=== PATIENT | female | born 1935 | race Asian ===

== ENCOUNTER 2022-12-12 11:17 | Emergency (ER) | payer MEDICARE, OTHER ==
[~2022-12-12] VITALS: Ht 152.4 cm; Wt 68.9 kg
[2022-12-12 11:20] VITALS: BP 159/93; PULSE 72; RESP 16; TEMP 98.1; O2SAT 98
[2022-12-12 11:53] LABS: BASOPHILS % (AUTO) 0.4 % (0.0-2.0); EOSINOPHILS # (AUTO) 0.3 K/uL (0-0.4); EOSINOPHILS % (AUTO) 3.7 % (0.0-4.0); HEMATOCRIT 36.5 % (36-48); HEMOGLOBIN 12.4 g/dL (12.0-16.0); LYMPHOCYTES % (AUTO) 28.7 % (20.5-51.1); MEAN CORPUSCULAR HEMOGLOBIN 29 pg (27-31); MEAN CORPUSCULAR HGB CONC 34 g/dL (33-37); MEAN CORPUSCULAR VOLUME 85.5 fL (80-94); MONOCYTES # (AUTO) 0.5 K/uL (0.8-1.0); MONOCYTES % (AUTO) 7.1 % (1.7-9.3); NEUTROPHILS # (AUTO) 4.3 K/uL (1.8-7.7); NEUTROPHILS % (AUTO) 60.1 % (42.2-75.2); PLATELET COUNT (AUTO) 270 K/uL (140-450); RED BLOOD CELL COUNT(AUTO) 4.27 MIL/uL (4.20-5.40); RED CELL DISTRIBUTION WIDTH 13.6 % (11.6-13.7); WHITE BLOOD COUNT (AUTO) 7.1 K/uL (4.8-10.8)
[2022-12-12 12:09] LABS: ALBUMIN 3.7 g/dL (3.4-5.0); ANION GAP 12.2 (8-16); ASPARTATE AMINOTRANSFERASE 20 U/L (15-37); CARBON DIOXIDE 28.2 mmol/L (21-32); CHLORIDE 95 mmol/L (98-107); CREATININE 0.9 mg/dL (0.6-1.3); GLUCOSE 204 mg/dL (74-106); LIPASE 192 U/L (73-393); POTASSIUM 4.4 mmol/L (3.5-5.1); SODIUM SERUM 131 mmol/L (136-145); TOTAL BILIRUBIN 0.7 mg/dL (0.0-1.0); UREA NITROGEN, BLOOD 17 mg/dL (7-18)
[2022-12-12 12:13] VITALS: O2SAT 100
--- NOTE | 2022-12-12 12:19 | NUR ---
87 Y/O F PATIENT PRESENTS TO ED WITH ABD PAIN AND BI LATERAL KNEE PAIN . PT STATES THAT SHE HAS HX OF HTN, OSTEOPOROSIS, SPONDYLOSIS. PT STATES SHES BEEN VOMITING SINCE LAST NIGHT. PT DENIES DIARREHA SKIN IS PINK/WARM/DRY; AAOX4 WITH EVEN AND STEADY GAIT; LUNGS CLEAR BL; HR EVEN AND REGULAR; PT DENIES ANY FEVER, SOB, OR COUGH AT THIS TIME; PATIENT STATES PAIN OF 5/10 AT THIS TIME; VSS; PATIENT POSITIONED FOR COMFORT; HOB ELEVATED; BEDRAILS UP X2; CALL LIGHT WITH IN REACH,BED DOWN. ER MADE AWARE OF PT STATUS. PMHX HTN OSTEOPOROSIS SPONDYLOSIS ALLERGIES Addendum: 12/12/22 at 1227 by [email or web address] NO KNOWN ALERANA LAURA
[2022-12-12] MEDS ORDERED: ONDANSETRON 4 MG/2 ML VIAL IVP ONE (12:20)
[2022-12-12] MEDS ORDERED: NACL 0.9% 1,000 ML IV ONE (12:20)
--- NOTE | 2022-12-12 12:21 | NUR ---
PT HAS BEEN MEDICATED PER PROVIDERS ORDERS.
[2022-12-12 12:49] LABS: APPEARANCE,URINE CLEAR (CLEAR); BILIRUBIN,URINE NEGATIVE (NEGATIVE); BLOOD, URINE TRACE-I (NEGATIVE); COLOR,URINE YELLOW (YELLOW); LEUKOCYTE ESTERASE ,URINE 1+ (NEGATIVE); NITRITE, URINE NEGATIVE (NEGATIVE); PH,URINE 6.5 (5.0-9.0); UGLUCOSE TRACE (NEGATIVE)
[2022-12-12] MEDS ORDERED: CEPH-588 PO (13:12)
[2022-12-12] MEDS ORDERED: ONDA-188 SL (13:12)
--- NOTE | 2022-12-12 13:20 | NUR ---
PT HAS PASSED HE PO CHALLENGE. SHES ABLE TO TOLERATE FOOD.
[2022-12-12 13:21] VITALS: BP 155/70; PULSE 74; RESP 19; TEMP 97.2; O2SAT 98
--- NOTE | 2022-12-12 13:54 | NUR ---
Patient discharged with v/s stable. Written and verbal after care instructions given and explained. Patient alert, oriented and verbalized understanding of instructions. Ambulatory with steady gait. All questions addressed prior to discharge. ID band removed. Patient advised to follow up with PMD. Rx of KEFLEX, ZOFRAN given. Patient educated on indication of medication including possible reaction and side effects. Opportunity to ask questions provided and answered.
[2022-12-14] MEDS ORDERED: AMOX1TAB8 PO (13:58)
== END 2022-12-12 13:51 | disposition home or self-care (01) ==
LOC: MED 11:17
DX: E86.0 Dehydration (principal); E87.1 Hypo-osmolality and hyponatremia; N39.0 Urinary tract infection, site not specified; I10 Essential (primary) hypertension; E11.9 Type 2 diabetes mellitus without complications; Z79.899 Other long term (current) drug therapy
CPT/HCPCS: 36415; 80053; 81001; 83690; 84484; 85025; 87086; 96361; 96374; 99284; J2405